=== PATIENT | female | born 1985 | race Asian ===

== ENCOUNTER 2018-02-03 21:07 | Emergency (ER) | payer OTHER ==
[~2018-02-03] VITALS: Ht 157.5 cm; Wt 54.4 kg
[2018-02-03 21:28] VITALS: BP 115/75
[2018-02-04] MEDS ORDERED: SODIUM CHLORIDE 0.9% 1,000 ML IVB ONE (02:33)
== END 2018-02-04 06:25 | disposition left against medical advice (07) ==
LOC: ER 21:07
DX: N93.9 Abnormal uterine and vaginal bleeding, unspecified (principal); Z53.21 Procedure and treatment not carried out due to patient leaving prior to being seen by health care provider; Z90.710 Acquired absence of both cervix and uterus